=== PATIENT | male | born 2000 | race Caucasian/White ===

== ENCOUNTER 2021-01-11 00:36 | Emergency (ER) | payer BC ==
[~2021-01-11] VITALS: Ht 177.8 cm; Wt 118.2 kg
[2021-01-11 00:48] VITALS: TEMP 98.2
[2021-01-11 02:00] VITALS: BP 134/78; PULSE 93
== END 2021-01-11 02:02 | disposition home or self-care (01) ==
LOC: COL.ER 00:36
DX: S61.215A Laceration without foreign body of left ring finger without damage to nail, initial encounter (principal); W22.8XXA Striking against or struck by other objects, initial encounter